=== PATIENT | female | born 1980 | race Caucasian/White ===

== ENCOUNTER 2018-01-31 21:03 | Emergency (ER) | payer SELFPAY ==
[2018-01-31] MEDS ORDERED: Meclizine TAB* 12.5 MG PO ONE (21:36)
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
[2018-01-31 21:49] VITALS: BP 135/83
== END 2018-01-31 21:48 | disposition home or self-care (01) ==
LOC: ED 21:03
DX: M54.2 Cervicalgia (principal); R42 Dizziness and giddiness; V89.2XXA Person injured in unspecified motor-vehicle accident, traffic, initial encounter; Y92.9 Unspecified place or not applicable
CPT/HCPCS: 99282; A9270-GY

== ENCOUNTER 2022-05-08 11:02 | Observation (INO) ==
[2022-05-08] MEDS ORDERED: Naloxone 0.4 mg VIAL 0.4 mg/ml 1 ml VIAL IV PUSH PRN (11:20)
[2022-05-08 11:52] LABS: Hematocrit 40 % (35-47); Hemoglobin 13.6 g/dL (12.0-16.0); Mean Corpuscular HGB Conc 34 g/dL (31-36); Mean Corpuscular Hemoglobin 30 pg (27-31); Mean Corpuscular Volume 89 fL (80-97); Mean Platelet Volume 9.2 fL (7.4-10.4); Platelet Count 212 10^3/uL (150-450); Red Blood Count 4.54 10^6 /uL (3.70-4.87); Red Cell Distribution Width 13 % (10-15)
[2022-05-08 12:09] LABS: Anion Gap 8 mmol/L (2-11); Blood Urea Nitrogen 14 mg/dL (6-24); CO2 Carbon Dioxide 28 mmol/L (22-32); Calcium 10.1 mg/dL (8.6-10.3); Chloride 100 mmol/L (101-111); Glucose 79 mg/dL (70-100); Potassium 3.5 mmol/L (3.5-5.0); Sodium 136 mmol/L (135-145); eGFR CKD-EPI 77.7 (>60)
[2022-05-08] MEDS ORDERED: Scopolamine 1 mg/72hr PATCH ONE (12:10)
[2022-05-08] MEDS ORDERED: Ondansetron 4 mg VIAL 2 MG/ML 2 ml VIAL ONE (12:10)
[2022-05-08] MEDS ORDERED: oxyCODONE SR 10 mg TAB ONE (12:10)
[2022-05-08 12:13] LABS: Activated Partial Thrombo Time 34.3 seconds (26.0-38.0); INR 1.16 (0.89-1.11)
[2022-05-08 12:16] LABS: HCG Pregnancy < 0.60 mIU/mL
[2022-05-08] MEDS ORDERED: Iohexol 350 (CONTRAST) 100 ML PAK IV ONE ×2 (12:28→13:37)
[2022-05-08] MEDS ORDERED: Heparin 2 UNITS/ML IVPREMIX 3,000 UNIT/1,500 ML BAG IV ONE (12:28)
[2022-05-08] MEDS ORDERED: Lidocaine 1% MPF 5 ML VIAL ONE (12:28)
[2022-05-08] MEDS ORDERED: nitroGLYCERIN DRIP 25,000 MCG/250 ML BTL ONE (12:44)
[2022-05-08] MEDS: Clindamycin 900 MG/D5W BAG IVPB ONE ×2 (12:45→14:43)
[2022-05-08] MEDS ORDERED: Heparin 1,000 UNIT/ML 10 ml (10,000 UNITS) CATHLAB/DIALYSIS ONE (12:45)
[2022-05-08] MEDS ORDERED: Midazolam 5 mg/5 ml VIAL 1 mg/ml 5 ml VIAL (5 mg) ONE (12:45)
[2022-05-08] MEDS ORDERED: fentaNYL 100 mcg/2 ml 50 MCG/ML VIAL ONE ×2 (12:45→13:27)
[2022-05-08] MEDS ORDERED: HYDROmorphone 0.5 MG/0.5 ML SYRINGE ONE (13:57)
[2022-05-08] MEDS: NS 0.9% 1000 ml BAG 1,000 ML IV SCH ×2 (14:30→23:54)
[2022-05-08] MEDS: HYDROmorphone PCA 20 MG/20 ML PCA.SYRING PCA SCH (15:01)
[2022-05-08] MEDS ORDERED: Prochlorperazine 5 mg/ml 2 ml VIAL (10 mg) IV PRN (17:26)
[2022-05-08] MEDS: Ondansetron 4 mg VIAL 2 MG/ML 2 ml VIAL IV SCH ×2 (18:01→23:52)
[2022-05-09] MEDS: Ondansetron 4 mg VIAL 2 MG/ML 2 ml VIAL IV SCH ×2 (05:54→12:03)
[2022-05-09 06:47] LABS: ABS Lymphocytes 1.3 10^3/ul (1.0-4.8); ABS Monocytes 0.6 10^3/ul (0-0.8); Hematocrit 38 % (35-47); Hemoglobin 12.9 g/dL (12.0-16.0); Lymphocyte % 10.3 %; Mean Corpuscular HGB Conc 34 g/dL (31-36); Mean Corpuscular Hemoglobin 30 pg (27-31); Mean Corpuscular Volume 89 fL (80-97); Mean Platelet Volume 9.6 fL (7.4-10.4); Nucleated Red Blood Cells % 0.1; Platelet Count 216 10^3/uL (150-450); Red Cell Distribution Width 13 % (10-15); White Blood Count 12.9 10^3/uL (3.5-10.8)
[2022-05-09 07:02] LABS: Calcium 8.2 mg/dL (8.6-10.3); Potassium 3.8 mmol/L (3.5-5.0); eGFR CKD-EPI 103.9 (>60)
[2022-05-09] MEDS: HYDROmorphone PCA 20 MG/20 ML PCA.SYRING PCA SCH (07:19)
[2022-05-09 11:33] VITALS: BP 122/59
== END 2022-05-09 12:45 | disposition home or self-care (01) ==
LOC: CHICATH 11:02 → SSU 11:02 → SUATTDRO 14:47
PROVIDERS: ADMIT Internal Medicine; ATTEND Hospitalist
PROC: ANG.UFE (2022-05-08 12:10)